=== PATIENT | male | born 1960 | race Caucasian/White ===

== ENCOUNTER 2024-11-25 20:23 | Emergency (ER) | payer MEDICARE, BC ==
[2024-11-25] MEDS: Sodium Chloride 0.9% 10 ML Syringe FLUSH PRN (20:45)
[2024-11-25 20:53] LABS: MEAN PLATELET VOLUME 9.5 fL (6.7-11.0); PLATELET COUNT,PLT 252 x10(3)uL (117-477); RED BLOOD CELL COUNT 5.58 x10(6)uL (3.90-5.90); RED CELL DISTRIBUTION WIDTH 14.4 % (12.4-15.0); WHITE BLOOD CELL COUNT,WBC 14.5 x10-3/uL (3.2-10.1)
[2024-11-25 21:02] LABS: A/G RATIO 0.5; ALANINE AMINOTRANSFERASE,ALT 20 U/L (12-36); ASPARTATE AMNIOTRANSFERASE,AST 24 IU/L (5-25); BILIRUBIN TOTAL 0.9 mg/dL (0.1-1.3); BLOOD UREA NITROGEN,BUN 57 mg/dL (7-18); CARBON DIOXIDE,CO2 30 mmol/L (21-32); CHLORIDE,CL 97 mmol/L (100-110); ESTIMATED GFR 23 mL/min (>60); GLUCOSE RANDOM 223 mg/dL (80-116); POTASSIUM,K 4.7 mmol/L (3.5-5.3); PROTEIN TOTAL,TP 7.8 g/dL (6.0-8.0); SODIUM,NA 135 mmol/L (135-145)
[2024-11-25 21:04] LABS: CREATININE 2.9 mg/dL (0.70-1.30)
[2024-11-25 21:28] LABS: PTT,PARTIAL THROMBOPLSTIN TIME 27.8 SECONDS (24.4-33.2)
[2024-11-25 21:32] LABS: LYMPHOCYTES PERCENT MAN 6 % (13-37); MONOCYTES PERCENT MAN 6 % (4-12); SEG NEUTROPHILS PERCENT MAN 88 % (46-82)
[2024-11-25] MEDS: methylPREDNISolone Sodium Succinate 125 MG/2 ML SDV IVPUSH ONE (21:39)
[2024-11-25 21:43] LABS: INR 1.0 (1.00-1.24)
== END 2024-11-25 23:06 | disposition other institution (70) ==
LOC: FB.ED 20:23
DX: I50.9 Heart failure, unspecified (principal); J44.9 Chronic obstructive pulmonary disease, unspecified; Z88.0 Allergy status to penicillin
CPT/HCPCS: 36415; 70450; 71045; 80053; 82947; 83605; 83880; 84484; 85025; 85610; 85730; 93005; 93010; 94640; 96361; 96374; 96375; 99285; A9270; J0696; J7030; J2919